=== PATIENT | male | born 1935 | race Native Hawaiian/Other Pacific Islander ===

== ENCOUNTER 2019-10-05 15:15 | Inpatient (IN) | payer OTHER ==
[~2019-10-05] VITALS: Ht 152.4 cm; Wt 82.1 kg
[2019-10-05 16:24] LABS: PLATELET COUNT 393 K/uL (142-355)
[2019-10-05 16:39] LABS: POTASSIUM 4.1 mmol/L (3.6-5.2)
[2019-10-05 16:40] VITALS: BP 119/57; TEMP 98.1; BMI 28.2
[2019-10-05 20:49] VITALS: BP 118/52; TEMP 98.1
--- NOTE | 2019-10-06 07:18 | NUR ---
Patient was admitted to the [facility] and has a PMH of rectal cancer, HTN, Hypothyroidism,UTI, urinary retention and had a colon resection, colostomy, , rectal cancer,colon resection, generalized muscle weakness, labs reveal- elevated labs are WBC, platelet count, BUN, gl113, and depressed labs are RBC, Hgb, Hct, Na, Ca, t. pro and lab levels. Patient is 6'1" at 216.4 lbs. and IBW = 184 +/-10% (166-202 lbs.), kcal for IBW X 25 = 2100, X 30 = 2500, X 35 = 2900, X 40 = 3345 KCAL Q DALY, PROTEIN X .8 TO 1.5 = 67 TO 125 AND WIHT LOW TOTAL PROTEIN AND ALB NEEDS HBV PROTEIN AND INCREASE PROTEIN AND MINITOR BUN LEVEL, BUN PRESENTLY ELEVATED. BMI - 28.5 OVERWEIGHT, AND IS 118% IBW, AND FLUIDS FOR WEIGHT AT 216.4 = 9945-1237 ML PER DAY. Recommend: 1- Add protein 30 ml qid 2- Monitor Labs 3-INCREASE PROTEIN WITH MEALS- EGGS FOR BREAKFAST AND MEATS W/ LUNCH AND SUPPER MEALS.
--- NOTE | 2019-10-06 14:57 | NUR ---
consult for urologist on admission orders. Family does not have a preference on who to use. I consulted with DR. Rodrigues in [place]. All information that was requested was sent via fax to MD office. awaiting return call for appt. date and time. Family will transport patient,
--- NOTE | 2019-10-06 20:00 | NUR ---
Dr. Trinidad Kingston here assessing the edema to Patient's penis. Dr. Kingston retracted the foreskin, area cleaned with hygiene wipes and foreskin returned to original area. Patient tolerated well but v/o penis was tender to touch. No new orders received from Dr. Geoff Kingston at this time.
[2019-10-06 20:05] VITALS: BP 99/45; TEMP 98.5
--- NOTE | 2019-10-07 19:40 | NUR ---
0730 INTO MAKE MORNING ROUNDS PT REQUESTED TO BE RAISED UP IN BED. ABDIRAHMAN PCT AND MYSELF ASSISTED PT BY PULLING HIM UP WITH DRAW SHEET AND PLACING PILLOWS BEHIND HIM. 1415 PT CALLED TO COME ASSIST WITH GETTING PT BACK TO BED. PT ABLE TO PUSH SELF UP OUT OF WHEELCHAIR WITH LIMITED ASSISTANCE AND AMBULATE TO BEDSIDE WITH WALKER. PT SAT ON BEDSIDE AND LAID BACK WITH SOME HELP GETTING BLE ONTO BED.
[2019-10-07 20:00] VITALS: BP 111/40; TEMP 99.6
[2019-10-08 08:04] VITALS: BP 107/53; TEMP 98.5
--- NOTE | 2019-10-08 17:41 | NUR ---
1430 IN TO ROUND ON PT. PT DRESSING TO MID LOWER ABD CHANGED, SURGICAL INCISION CLEANSED PER ORDERS, ABD PAD APPLIED. MILD REDNESS NOTED TO INCISION NO DRAINAGE OR ODOR NOTED. PT BOTTOM REASSESSED AT FAMILY'S REQUEST. 0.5CM AREA NOTED TO PT SCROTUM BARRIER CREAM APPLIED PER DR. Chris ONEIL. NO BLEEDING OR DRAINAGE NOTED. PT WAFER AND COLOSTOMY BAG CHANGED AT THIS TIME WELL. STOMA CLEANSED THOROUGHLY, CLEANED AROUND IT WITH PRECLEANSING WIPE, SKIN PREP APPLIED, NEW WAFER MEASURED AND REAPPLIED. PT TOLERATED WELL WITHOUT COMPLAINTS. PT NOTED TO DOZE OFF DURING CHANGING OF WOUND DRESSING AND CHANGING OF COLOSTOMY BAG.
[2019-10-08 20:00] VITALS: BP 103/43; TEMP 98.2
--- NOTE | 2019-10-09 07:45 | NUR ---
ON ROUNDING PT WAS BRINGING PATIENT BACK TO HIS ROOM FROM GETTING THERAPY THIS MORNING VIA WHEELCHAIR. PT NOTIFIED THIS NURSE THAT WHILE ASSISTING PATIENT OUT OF BED THIS MORNING IT WAS NOTED ON THE GREEN PAD SOME BLOOD AND ON FURTHER ASSESSMENT THE SKIN ON HIS UPPER BUTTOCKS WAS SLOUGHING AND STICKING TO HIS PANTS. ON FURTHER ASSESSMENT IS WAS NOTED SKIN SLOUGHING AND SOME BLEEDING NOTED ON UPPER BUTTCKS. NOTIFIED AND NEW ORDERS WERE GIVEN FOR SILVADENE AND CONSULT WITH WOUND NURSE. ALSO NOTED STATED HIS CURRENT COLOSTOMY BAG HAD A HOLE IN WHAT SHE BELIEVES WAS CAUSED BY THE ABDOMINAL BINDER THAT WAS LEFT IN PLACE LAST NIGHT. EXPLAINED TO THAT WE WOULD CHANGE HIS BACK AND APPLY CREAM ORDERED BY PHYSICIAN.
--- NOTE | 2019-10-09 08:00 | NUR ---
PATIENT ASSISTED UP FROM BEDSIDE CHAIR WITH MODERATE ASSISTANCE AND USING WALKER WAS ABLE TO AMBULATE TAKING A FEW SHORTS STEPS FOWARD AND THEN MOVING TOWARDS BED. PATIENT STILL REQUIRES 2 PERSON ASSIST TO REPOSITION HIM UP IN BED. WHILE IN BED PATIENT PLACED IN SUPINE POSITION AND WITH HIS ASSISTANCE SHE HELPED HIM ROLL OVER ON TO HIS RIGHT SIDE. AREA TO HIS UPPER BUTTOCKS CLEANED WITH NORMAL SALINE AND PADDED DRY. SILVADENE APPLIED ON TELFA PAD AND COVERED WITH ABDOMINAL PAD AND THEN SECURED WITH TAPE. AREA TO THE SCROTUM CLEANED AND CALAMIZE CREAM APPLIED. CURRENT ABDOMINAL DRESSING REMOVED AND NOTED ON LOWER ABDOMEN A SURGICAL WOUND WITH 20 CURTIS INTACT. NO DRAINAGE NOTED THERE WAS HOWEVER SOME REDNESS SURRONDING INCISION. AREA CLEANED WITH NS AND THEN CHLORXEDINE APPLIED AND CLEANED WITH STERILE GAUZE FOLLWED BY FLUSHING WITH NS AND PADDED DRY WITH STERILE GAUZE WELL, ABDOMINAL PAD PLACED ON TOP AND SECURED WITH TAPE.
[2019-10-09 08:06] VITALS: BP 96/40; TEMP 98.2
--- NOTE | 2019-10-09 18:48 | NUR ---
PATIENT NOTED RESTING QUIETLY IN BED EATING CRACKERS, WHEN CALLING HIS NAME PATIENT IS PLEASENT. NO DISTRESS NOTED AT THIS TIME.
[2019-10-09 20:00] VITALS: BP 116/57; TEMP 97.7
--- NOTE | 2019-10-10 01:27 | NUR ---
10/10/2019 0130 RESTING EYES CLOSED RESP EVEN NONLABORED NAD NOTED.CALL LIGHT WITHIN REACH.
--- NOTE | 2019-10-10 06:28 | NUR ---
10/10/2019 0615 EMPTIED SMALL AMOUNT OF GREEN STOOL FROM OSTOMY BAG.NAD NOTED.CC
[2019-10-10 08:26] VITALS: BP 116/56; TEMP 98.5
--- NOTE | 2019-10-10 10:17 | NUR ---
Mr. Atwood has a appt. with Dr. hager in [place] on on thursday10/11/2019 at 10am he also has an appt. with Dr. Rodrigues (urologist) in [place] on 10/13/2019 at 0930. Family with transport patient to and from his appts. family and nursing staff are aware of appts.
[2019-10-10 20:00] VITALS: BP 110/52; TEMP 98.5
--- NOTE | 2019-10-11 04:45 | NUR ---
10/11/2019 0010: PT HAS 2 DECUBITUS. RIGHT BUTTOCKS 30 CM LONG, 30CM WIDE. LEFT BUTTOCKS 45CM LONG AND 40CM WIDE. WOUNDS ARE STAGE 2. WOUNDS CLEANED WITH NS. SILVADENE APPLIED TO BOTH SIDES, COVERED WITH 4X4'S AND LARGE TEGADERM TO COVER. PT TOLERATED WELL.
[2019-10-11 08:00] VITALS: BP 116/57; TEMP 98.3
--- NOTE | 2019-10-11 08:04 | NUR ---
0745 THERAPY IN WITH PT ATTEMPTING TO HELP PT DRESS FOR DR'S APPT. PT STATED HE DID NOT WANT TO GET DRESSED AT THIS TIME. PT STATED HE WOULD GET DRESSED LATER
--- NOTE | 2019-10-11 10:25 | NUR ---
1030 SPOKE TO MIRANDA IN THERAPY CONCERNING EPISODE THAT HAPPENED IN [facility] ON 10-10-19. PER THERPAY PT NOTED TO HAVE SMALL LIQUID STOOL FROM RECTUM WHILE IN THERMOY. PT STILL HAS COLOSTOMY WITH LIQUID BROWN/YELLOW STOOL NOTED IN COLOSTOMY BAG.
--- NOTE | 2019-10-11 11:41 | NUR ---
1135 PT BACK FROM OUT-PT APPT. WITH PT. PT IN WC. ASSISTED PT BACK TO ROOM AND OUT OF WC AND INTO CHAIR. PER REMOVED CURTIS FROM INCISION TO ABD AND DRY ABD PAD INTACT. NO ACTIVE BLEEDING NOTED. COLOSTOMY BAG AND HORAN CATH BAG DRY AND INTACT WITH YELLOW URINE NOTED. STATED PER MD ABD BINDER DID NOT NEED TO BE WORN ANYMORE SINCE CURTIS HAD BEEN REMOVED. NO ORDERS OR NOTES REC'D FROM MD AT THIS TIME. REQUESTED PT'S BOTTOM BE "CLEANED UP" . STATED PT HAD SOME CLEAR DRAINAGE FROM RECTUM WHILE AT MS'S OFFICE. PER STATED THAT THIS WAS NORMAL AND OK. CHECKED AND PT CLEAN AT THIS TIME. DRESSING TO BUTTOCK AREA REMOVED AND AREA CLEANED AND SILVADENE CREAM APPLIED. AND ABD PAD APPLIED. WILL CONT TO RANDYTR.
[2019-10-11 20:10] VITALS: BP 131/63; TEMP 97.7
[2019-10-12 08:00] VITALS: BP 122/60; TEMP 98
[2019-10-12 20:00] VITALS: BP 109/51; TEMP 98.9
[2019-10-13 08:00] VITALS: BP 104/53; TEMP 98.2
[2019-10-13 20:00] VITALS: BP 113/50; TEMP 99.5
--- NOTE | 2019-10-14 00:30 | NUR ---
PT COLOSTOMY BAG EMPTIED AT THIS TIME.
--- NOTE | 2019-10-14 04:30 | NUR ---
IV INFILTRATED AT THIS TIME. UNABLE TO OBTAIN NEW SITE X2 ATTEMPTS, CALLED ER NURSE TO ASSESS FOR IV SITE AND WAS UNABLE TO FIND SUITABLE SITE.
--- NOTE | 2019-10-14 06:11 | NUR ---
PT COLOSTOMY BAG EMPTIED AT THIS TIME.
[2019-10-14 08:00] VITALS: BP 125/64; TEMP 97.9
--- NOTE | 2019-10-14 14:33 | NUR ---
DRESSING REMOVED FROM ABD SITE CLEANED WITH ALCOHOL AND LEFT OPEN TO AIR. DRESSING CHANGED TO COCCYX NO SLOUGHING NOTED AT THIS TIME SITE IS PINK AND FREE FROM INFECTION CLEANED WITH NS AND SILVADINE APPLIED WITH ABD
[2019-10-14 20:10] VITALS: BP 106/43; TEMP 98.1
[2019-10-15 07:00] VITALS: BP 126/65; TEMP 97.6
--- NOTE | 2019-10-15 16:28 | NUR ---
DRESSING CHANGED TO COCCYX AND ABD INCISION CLEANED
[2019-10-15 19:55] VITALS: BP 111/55; TEMP 98.7
--- NOTE | 2019-10-16 08:00 | NUR ---
PT RESTING N LF WITH EYES CLOSED. HORAN TO BSD WITH CL YELLOW URINE.
[2019-10-16 08:30] VITALS: BP 117/63; TEMP 98.2
--- NOTE | 2019-10-16 11:00 | NUR ---
WOUND TO COCCYX CLEANED WITH NS,APPEARS TO BE A BURST BLISTER,PALE PINK IN COLOR WITH NO DRAINAGE ON NR SIDE & SM AMT PINK ON R SIDE. SIZE 4-5 CM BOTH SIDES OF COCCYX & L SIDE 2-3 CM AREA IN CENTER PINKER. SILVADENE APPLIED COVERED WITH ABD & PAPER TAPE. COLOSTOMY EMPTIED OF 75 ML SOFT BROWN BM.
--- NOTE | 2019-10-16 14:40 | NUR ---
PT C/O 'I FEEL LIKE I'VE GOT TO PEE ALL THE TIME, I FEEL LIKE I'M ABOUT TO BUST'. REPORTED TO DR GARSIA. AUNG TO BSD WITH CLEAR YELLOW URINE WITH SEDIMENT IN TUBING.
--- NOTE | 2019-10-16 15:00 | NUR ---
PT WITH NOTED SM AMT EDEMA TO FORESKIN OF PENIS NEAT GLANS TIP. CLEANED WITH NS, TESTICLES ELEVATED ON WASHCLOTH FOR COMFORT. UA OBTAINED. HORAN IRRIGATED WITH 20 ML STERILE NS. URINE IN SPECIMEN CUP WITH SM AMT CLOUDY.HORAN BAG REPOSITONED FOR COMFORT.NOTED 2 TINY <.5CM ? ABRAIDED AREAS TO FORESKIN ON PENIS.
--- NOTE | 2019-10-16 17:25 | NUR ---
LABS CALLED TO DR GOKUL GARSIA. NEW ORDERS.
[2019-10-16 20:26] VITALS: BP 116/59; TEMP 98.1
[2019-10-17 08:21] VITALS: BP 127/55; TEMP 97.6
--- NOTE | 2019-10-17 08:30 | NUR ---
PT REQUESTED COLOSTOMY TO BE EMPTIED. COLOSTOMY BAG EMPTIED. PT TOLERATED WELL.
--- NOTE | 2019-10-17 10:20 | NUR ---
PT REQUESTED COLOSTOMY BAG TO BE EMPTIED. BAG EMPTIED PER REQUEST. SMALL AMOUNT OF STOOL NOTED. PT TOLERATED WELL.
--- NOTE | 2019-10-17 14:15 | NUR ---
CALL REC'D FROM PHYSICAL THERAPY. PHYSICAL THERAPY REPORTS PT DESATTING TO [address] COPELAND NOTIFIED. ORDERS REC'D TO START O2 2L/MIN TITRATE TO KEEP SATS >92%. PHYSICAL THERAPY NOTIFIED.
--- NOTE | 2019-10-17 14:47 | NUR ---
PT COLOSTOMY BAG CHANGED. SMALL AMOUNT STOOL NOTED. DRESSING TO SACARAL AREA CHANGED. SILVADENE APPLIED AND COVERED WITH ABD PAD. PT TOLERATED WELL
[2019-10-17 20:00] VITALS: BP 112/56; TEMP 98.2
--- NOTE | 2019-10-17 22:14 | NUR ---
300CC LIQUID STOOL EMPTIED FROM COLOSTOMY AT THIS TIME.
[2019-10-18 08:00] VITALS: BP 139/61; TEMP 97.7
[2019-10-18 20:00] VITALS: BP 139/58; TEMP 97.9
--- NOTE | 2019-10-19 07:36 | NUR ---
10/19/2019 0600 PT OSTOMY WAFER AND BAG CHANGED WITH MODERATE AMOUNT STOOL BROWN GREEN IN COLOR,PT BATHED OFF AND BEDLINEN CHANGED.ICE WATER PROVIDED AT BEDSIDE.HORAN CATHETER DRAINING ORANGE COLORED URINE FROM PYRDIUM MEDICATION.CATH SECURE APPLIED NOTED SMALL SORE AREA TO PENIS NOTED REPORTED TO DAY SHIFT NURSE.ALSO DSY TO COCCYX AREA CLEANED APPLIED SILVADEEN AND TAPE.CC
[2019-10-19 08:00] VITALS: BP 119/58; TEMP 97.6
--- NOTE | 2019-10-19 11:01 | NUR ---
URINE C & S FINAL CAME BACK AND BACTRIM DS THAT PT WAS ON IS NOT SENITIVE. DR ELIU ONEIL NOTIFIED AND NEW ORDER RECEIVED FOR MACOBID 100 MG, BID X 14 DAYS RECEIVED. BACTRIM DS D/C'D.
[2019-10-19 20:10] VITALS: BP 104/47; TEMP 98.3
[2019-10-20 08:00] VITALS: BP 112/68; TEMP 97.6
[2019-10-20 20:00] VITALS: BP 110/53; TEMP 98.5
[2019-10-21 08:00] VITALS: BP 110/50; TEMP 97.9
--- NOTE | 2019-10-21 09:05 | NUR ---
MDS and UR department spoke with Alan Benson regarding usp placement for her , she is in full agreement with placement. She is unable to provide the 24-hour care that her requires at this time. She was going to the [facility] to place him on the waiting list. UR dept. will reach out to surrounding facilities for availability. Hospitalist is aware.
[2019-10-21 20:00] VITALS: BP 118/53; TEMP 98.1
--- NOTE | 2019-10-21 21:30 | NUR ---
PT COLOSTOMY BAG EMPTIED AT THIS TIME.
[2019-10-22 05:09] LABS: PLATELET COUNT 246 K/uL (142-355)
[2019-10-22 05:27] LABS: POTASSIUM 3.8 mmol/L (3.6-5.2)
--- NOTE | 2019-10-22 05:49 | NUR ---
PT COLOSTOMY BAG EMPTIED AT THIS TIME.
[2019-10-22 08:00] VITALS: BP 124/62; TEMP 97.9
--- NOTE | 2019-10-22 14:42 | NUR ---
pt colostomy bag emptied. changed dressing x2 due to green liquid stool draining out on dressing. had to change pt clothing 4x due to the drainage constantly draining out.
[2019-10-22 20:00] VITALS: BP 130/60; TEMP 98.5
--- NOTE | 2019-10-23 01:30 | NUR ---
PT'S COLOSTOMY BAG EMPTIED AT THIS TIME.
--- NOTE | 2019-10-23 10:00 | NUR ---
COLOSTOMY BAG BURPED AT THIS TIME.
[2019-10-23 11:28] VITALS: BP 151/66; TEMP 99.4
--- NOTE | 2019-10-23 17:30 | NUR ---
REILLY GONZALEZ LPN CALLED THIS NURSE TO COME AND EVALUTE PATIENT REGARDING PATIENT COMPLAINING OF BEING WET ON HIS BOTTOM AND MIDBACK. ON ASSESSMENT IT WAS NOTED THAT HIS CLOTHES FROM HIS BOTTOM AND MIDBACK WAS DRENCHED IN URINE. PATIENT CURRENTLY HAS A 18 HUNGARIAN CUDAE CATHETER CONNECTED TO BEDSIDE DRAINAGE NOTED IN TUBING IS MODERATE AMOUNT OF YELLOW SEDIMENT. ASSESSING THE HEAD OF THE PENIS AND AROUND CATHETER SITE NO DRAINAGE OR LEAKING WAS NOTED AT THIS TIME I WENT DOWN TO NURSES STATION AND CALLED CURRENT HOSPITALIST ON SITE TO SEE IF WE COULD IRRIGATE BLADDER AND SEE IT THAT WOULD CLEAR UP SOME OF THE HORAN CATHETER AND POSSIBLE DRAINAGE. ORDER PLACED AND 250 ML OF STERILE WATER FOR IRRIGATION PULLED ALONG WITH A 60 ML SYRINGE. WHILE IN PATIENTS ROOM PATIENTS CATHETER BAG DISCONNECTED AND CATHETER IRRIGATED WITH 90 ML OF STERILE WATER, WHILE FLUSHING MODERATE AMOUNT OF SEDIMENT FLUSHED. ON RETURN 80 ML YELLOW URINE WITH SEDIMENT WAS NOTED. CATHETER SECURED AND PATIENT DRESSED AT THIS TIME.
--- NOTE | 2019-10-23 18:41 | NUR ---
PT TOLERATED MEDICATION WHOLE WITH NO COMPLIANTS. GAVE A BED BATH AND CHANGED LINEN. PT STILL HAVE GREEN MODERATE DISCHARGE COMING FROM HIS ANUS AREA. ORDERED C-DIFF LAB TEST. AWAITING RESULTS. APPLIED SILVADENE CREAM TO SACCRUM AREA AND SCROTUM. BED IN LOWEST POSITION. HOB ELEVATED. CALL LIGHT IN REACH.
[2019-10-23 20:00] VITALS: BP 128/65; TEMP 98.9
--- NOTE | 2019-10-24 07:45 | NUR ---
PT'S CONCERNED WITH PT'S DECREASED OUTPUT IN HORAN BAG & ADULT BRIEF BEING WET AT INTERVALS. HORAN IRRIGATED WITH 15ML STERILE NS.WITH NOTED MOD AMT SEDIMENT.MED YELLOW URINE RETURNED TO BAG AFTER. PERICARE, WOUND CARE TO L BUTTOCK 2X/.5 CM RED OPEN AREA CLEANED, SILVADENE APPLIED,COVERED WITH FOLDED ABD. REQUESTED APPOINTMENT WITH DR MONTENEGRO UROLOGIST.
[2019-10-24 08:08] VITALS: BP 115/54; TEMP 98.1
--- NOTE | 2019-10-24 08:16 | NUR ---
NOTIFIED UR OF PT'S REQUEST.
--- NOTE | 2019-10-24 08:30 | NUR ---
REPORTED ALL OF ABOVE TO DR ELIU ONEIL./ WILL TALK WITH PT & .
--- NOTE | 2019-10-24 09:45 | NUR ---
QUESTIONABLE DEPRESION REPORTED TO DR ELIU ONEIL.
--- NOTE | 2019-10-24 10:23 | NUR ---
APPOINTMENT WITH DR ROCA FOR 0926 TOMORROW . PT'S NOTIFIED, UR NOTIFIED, DR ONEIL NOTIFIED. INFO REQUESTED FAXED TO DR FLETCHER.
--- NOTE | 2019-10-24 12:30 | NUR ---
PT WITH NOTED GOOD URINE OUTPUT IN HORAN BAG & NO MORE WET BRIEF.
--- NOTE | 2019-10-24 16:43 | NUR ---
BIM[facility] interview completed.
--- NOTE | 2019-10-24 17:40 | NUR ---
PT CONTINUES TO HAVE GOOD URINE OUTPUT IN CATHETER BAG.BRIEF DRY. PT FEEDING SELF DINNER.
[2019-10-24 20:23] VITALS: BP 130/58; TEMP 98.7
--- NOTE | 2019-10-25 05:40 | NUR ---
PT REC'D BATH AT THIS TIME WITH NURSE AND TECH ASSISTANCE. COLOSTOMY EMPTIED AT THIS TIME. PT TOLERATED WELL.
[2019-10-25 08:00] VITALS: BP 142/58; TEMP 97.8
[2019-10-25 20:00] VITALS: BP 141/64; TEMP 98.3
[2019-10-26 08:00] VITALS: BP 140/68; TEMP 98.4
--- NOTE | 2019-10-26 19:30 | NUR ---
COLOSTOMY BAG EMPTIED AT THIS TIME, FAMILY AT BEDSIDE, FOUL ODOR NOTED.
[2019-10-26 20:00] VITALS: BP 132/51; TEMP 97.7
--- NOTE | 2019-10-27 02:43 | NUR ---
COLOSTOMY BAG EMPTIED AT THIS TIME, FOUL ODOR NOTED.
--- NOTE | 2019-10-27 03:00 | NUR ---
BRIEF CHANGED AT THIS TIME DUE TO SMALL AMOUNT OF YELLOWISH MUCOUS FOUL ODUR DRAINAGE LEAKAGE FROM RECTUM.
[2019-10-27 08:00] VITALS: BP 142/63; TEMP 97.3
--- NOTE | 2019-10-27 08:30 | NUR ---
NOTIFIED DR. GARSIA OF PT'S C/O'S OF NAUSEA AND VOMITING AND EPISODES TODAY AND RECEIVED SYED FOR ZOFRAN 4MG PO EVERY 4 HOURS PRN. VIRGIL NOTED AND SCANNED TO [facility].
--- NOTE | 2019-10-27 15:40 | NUR ---
IN TO MAKE ROUNDS ON PT. PT LAYING IN BED ON BACK IN LOW FOWELERS. RISE AND FALL OF CHEST NOTED. NAD NOTED. PT RESTING QUIETLY WITH EYES CLOSED.
--- NOTE | 2019-10-27 19:38 | NUR ---
200ML LIQUID STOOL EMPTIED FROM PT'S COLOSTOMY BAG. PT TOLERATED WELL WITHOUT DIFFICULTY
[2019-10-27 20:00] VITALS: BP 132/54; TEMP 98.6
[2019-10-28 08:00] VITALS: BP 116/68; TEMP 98.1
--- NOTE | 2019-10-28 10:00 | NUR ---
PT'S COLONOSTOMY BAG WAS CHANGED. PT TOLERATED WITH NO DISTRESS NOTED.
[2019-10-28 20:00] VITALS: BP 128/57; TEMP 99
[2019-10-29 08:00] VITALS: BP 121/58; TEMP 97.9
--- NOTE | 2019-10-29 10:14 | NUR ---
OSTOMY BAG EMPTIED AT THIS TIME. MEDIUM SIZED SEMIFORMED BROWN STOOL NOTED. PT TOLERATED WELL. AT BEDSIDE. EDUCATION GIVEN REGARDING OSTOMY CARE. PT AND VERBALIZED UNDERSTANDING. SILVADINE CREAM APPLIED TO BUTTOCKS AT THIS TIME. SMALL AREA TO LEFT BUTT CHEEK NOTED. STATES " THAT LOOKS SO GOOD COMPARED TO BEFORE." NAD NOTED. WILL CONTINUE TO MONITOR.
--- NOTE | 2019-10-29 14:00 | NUR ---
NURSE ASKS PATIENT IF THERE IS ANYTHING SHE CAN GET HIM TO EAT BECAUSE OF A NOTICE IN DECREASE APPETITE. PT STATES " I HAVE HAD NO APPETITE SINCE I HAVE BEEN IN THE HOSPITAL." NURSE ASKED PATIENT IF HE FELT DIFFERENT OR BAD TODAY PT STATES, " NO I DO NOT FEEL BAD TODAY AT ALL." NAD NOTED. AT BEDSIDE. WILL CONTINUE TO MONITOR.
[2019-10-29 20:00] VITALS: BP 113/46; TEMP 97.8
--- NOTE | 2019-10-30 10:00 | NUR ---
PT LYING IN BED WITH EYES OPENED AND TALKING WITH AND SON. TOOK MEDS WHOLE WITH NO DISTRESS NOTED. PT USES THE URINAL FOR URINATING AND HAS A COLONOSTOMY BAG FOR STOOL. NO ACUTE DISTRESS NOTED OR C/O OF PAIN OR DISCOMFORT VOICED. CALL LIGHT IS WITHIN REACH. WILL CONTINUE TO MONITOR.
--- NOTE | 2019-10-30 15:00 | NUR ---
PATIENT WAS TRANSFERRED VIA W/C TO WORK WITH PT 1615- PT TRANSFERRED VIA W/C BACK TO ROOM 1119 FROM PT DEPT. NAD NOTED. CALL LIGHT WITHTIN REACH.
--- NOTE | 2019-10-30 19:10 | NUR ---
PT HAD BED BATH AND CLOTHES WERE CHANGED. PT IS ABLE TO STAND UP BY HIMSELF AND HOLD ONTO COUNTER WHILE SOMEONE WASHES HIS LOWER BODY. PATIENT IS ABLE TO WASH HIS UPPER BODY BY HIMSELF. COLONOSTOMY WAFFER AND BAG WAS CHANGED TODAY. NO ACUTE DISTRESS NOTED. CALL LIGHT WITHIN REACH.
[2019-10-30 20:00] VITALS: BP 113/52; TEMP 98.8
[2019-10-31 04:44] VITALS: BP 183/106; TEMP 99; Ht 152.4 cm; Wt 82.1 kg
[2019-10-31 08:00] VITALS: BP 142/62; TEMP 97.7
--- NOTE | 2019-10-31 14:44 | NUR ---
PATIENT DID NOT EAT BREAKFAST AND ONLY ATE 10% PF HIS LUNCH. PT THEN WENT TO PHYSICAL THERAPY AND CAME BACK AND IS NOW EATING BANANAS AND MASH POTATOES.
[2019-10-31 20:00] VITALS: BP 139/67; TEMP 97.9
[2019-11-01 08:00] VITALS: BP 122/58; TEMP 98.4
--- NOTE | 2019-11-01 11:43 | NUR ---
PATIENT DISCHARGED IN W/C WITH AND ESCORT TO POV AT NOTED TIME. ALL MEDICATION EDUCATION AND COLOSTOMY CARE EDUCATION PROVIDED PRIOR TO DISCHARGE. PATIENT AND CAREGIVER INSTRUCTED TO COLLABORATE WITH HOME HEALTH. CAREGIVER, , STATED SHE ALREADY CALLED [facility] AND THEY WILLBE ASSISTING PATIENT AT HOME BEGINNING IN A FEW DAYS. INSTRUCTED TO F/U WITH PCP IN 2 WEEKS POST DISCHARGE, VOICED UNDERSTANDING.
== END 2019-11-01 11:12 | disposition home or self-care (01) | DRG 556 ==
LOC: MED/SURG 15:15
PROVIDERS: ADMIT Family Medicine
DX: M62.81 Muscle weakness (generalized) (principal); N39.0 Urinary tract infection, site not specified; C19 Malignant neoplasm of rectosigmoid junction; R62.7 Adult failure to thrive; R26.89 Other abnormalities of gait and mobility; Z91.81 History of falling; I10 Essential (primary) hypertension; E03.8 Other specified hypothyroidism; R33.8 Other retention of urine; Z93.3 Colostomy status; K21.9 Gastro-esophageal reflux disease without esophagitis; N40.0 Benign prostatic hyperplasia without lower urinary tract symptoms; R09.02 Hypoxemia; Z90.49 Acquired absence of other specified parts of digestive tract
CPT/HCPCS: 36415; 80053; 81000; 83630; 83735; 85027; 87077; 87086; 87088; 87185; 87186; 87324; 87449; J2060

== ENCOUNTER 2020-12-06 12:04 | Outpatient (CLI) | payer OTHER ==
[2020-12-06 12:32] LABS: PLATELET COUNT 226 K/uL (142-355)
[2020-12-06 12:44] LABS: POTASSIUM 4.1 mmol/L (3.6-5.2)
== END 2020-12-06 21:45 | disposition home or self-care (01) ==
LOC: LABW 12:04
PROVIDERS: ATTEND Nurse Practitioner Family
DX: R05 Cough (principal); R10.9 Unspecified abdominal pain
CPT/HCPCS: 36415; 80053; 81000; 82150; 83690; 85027; Q9963

== ENCOUNTER 2021-02-11 12:46 | Outpatient (CLI) | payer OTHER ==
[2021-02-11 13:33] LABS: PLATELET COUNT 234 K/uL (142-355)
[2021-02-11 13:42] LABS: POTASSIUM 3.9 mmol/L (3.6-5.2)
== END 2021-02-11 19:55 | disposition home or self-care (01) ==
LOC: LABW 12:46
PROVIDERS: ATTEND Surgery
DX: K59.09 Other constipation (principal)
CPT/HCPCS: 36415; 80053; 85027

== ENCOUNTER 2021-09-13 05:40 | Inpatient (IN) | payer OTHER ==
[~2021-09-13] VITALS: Ht 188 cm; Wt 104.1 kg
[2021-09-13] VITALS (12 sets, daily range): BP systolic 83–140; BP diastolic 41–68; TEMP 98.2–99.3; Ht 188 cm; Wt 104.1 kg
[2021-09-13] MEDS ORDERED: K-TAB20 MEQ PO (06:09)
[2021-09-13] MEDS ORDERED: LEVO0.1224 PO (06:10)
[2021-09-13] MEDS ORDERED: ALLO300T23 PO (06:11)
[2021-09-13] MEDS ORDERED: NIFE30TA PO (06:11)
[2021-09-13] MEDS ORDERED: D350 MCG PO (06:12)
[2021-09-13] MEDS ORDERED: FURO20TA67 PO (06:12)
[2021-09-13 06:21] LABS: PLATELET COUNT 159 K/uL (142-355)
[2021-09-13 06:28] LABS: POTASSIUM 3.6 mmol/L (3.6-5.2)
[2021-09-13 07:01] LABS: PARTIAL THROMBOPLASTIN TIME 28.8 SECONDS (24.5-33.6)
[2021-09-13] MEDS ORDERED: VITAMIN B-121000 MC2 PO (17:11)
[2021-09-13] MEDS ORDERED: MULTI VITAMIN1 TAB PO (17:15)
--- NOTE | 2021-09-13 17:32 | NUR ---
09/13/21 1050 TO ROOM 1116 DX UROSEPIS UTI,NEW ONSET AFIB,COVID +,CHESTPAIN R/O MD.ALERT ORIENTED.TELE PLACED ON PATIENT.HORAN CATHETER TO BEDSIDE SHARON URINE.CALL LIGHT WITHIN REACH.CC
--- NOTE | 2021-09-13 21:00 | NUR ---
PT IS UP ON THE BEDSIDE COMMODE AT THIS TIME, NO DIFFICULTY NOTED DURING TRANSFERRING FROM THE BED TO BSC. PATIENT HAS DENIED PAIN AT THIS TIME, TOLERATED PO MEDICATION WELL WITHOUT DIFFICULTY SWALLOWING. PLEASANT TONE NOTED WILL CONTINUE WITH CURRENT PLAN OF CARE.
--- NOTE | 2021-09-13 23:00 | NUR ---
PT HAS BEEN ASSISTED TO BSC WITH NO DIFFICULTY NOTED, PLEASANT TONE HAS REMAINED SINCE LAST INTERACTION. DENIES PAIN, UNSTEADY GAIT NOTED DURING TRANSFER WITH SOME DIFFICULTY HEARING ALSO NOTED. NO DISTRESS PRESENT WILL CONTINUE WITH CURRENT PLAN OF CARE.
[2021-09-14] VITALS: BP 122/58; TEMP 98.6
--- NOTE | 2021-09-14 01:00 | NUR ---
PT IS RESTING IN BED OXYGEN LEVELS HAS DECREASED WITH ORDER PICKER NOTIFIED, OXYGEN THERAPY INITIATED WITH ORDERS COMPLETED AT 3L/MIN VIA NC. OF NOW VITALS HAS WENT BACK TO BASELINE WITH NO FURTHER INCIDENTS NOTED. WILL CONTINUE WITH CURRENT PLAN OF CARE.
--- NOTE | 2021-09-14 03:00 | NUR ---
PT HAS CONTINUED TO REST WELL WITH NO COMPLAINTS VOICED NASAL CANNULA INTACT WITH OXYGEN DELIVERY AT 3L/MIN. VITALS ARE WNL WITH NO DISTRESS NOTED, ABLE TO VOICE ALL NEEDS WITH NONE NOTED WILL CONTINUE WITH CURRENT PLAN OF CARE.
[2021-09-14 04:07] VITALS: BP 118/66; TEMP 98.2
[2021-09-14 04:50] LABS: PLATELET COUNT 143 K/uL (142-355)
[2021-09-14 05:05] LABS: POTASSIUM 3.8 mmol/L (3.6-5.2)
--- NOTE | 2021-09-14 06:14 | NUR ---
PT RESTING IN BED WITH EYES CLOSED NO DISTRESS NOTED WILL CONTINUE TO WITH CURRENT PLAN OF CARE.
[2021-09-14 08:00] VITALS: BP 109/68; TEMP 97.5
--- NOTE | 2021-09-14 11:00 | NUR ---
ASSISTED PATIENT TO BSC FOR BOWEL MOVEMENT, LINENS AND CHUX CHANGED. PATIENT'S GAIT IS SLOW AND STEADY WITH ASSISTANCE X1 STAFF MEMBER. NAD NOTED WITH PATIENT AT THIS TIME. PATIENT DENIES ANY PAIN, NEEDS OR C/O.
--- NOTE | 2021-09-14 11:40 | NUR ---
PROVIDED PATIENT'S AN UPDATE ON PATIENT'S CONDITION, V/O UNDERSTANDING AND DENIES ANY FURTHER QUESTIONS OR C/O.
[2021-09-14 12:00] VITALS: BP 130/49; TEMP 98.2
--- NOTE | 2021-09-14 14:58 | NUR ---
REPORT GIVEN BY ARTHUR MORGAN.
[2021-09-14 16:00] VITALS: BP 129/68; TEMP 98.1
[2021-09-14 19:48] VITALS: BP 136/60; TEMP 98.4
[2021-09-15 00:07] VITALS: BP 118/59; TEMP 98.4
[2021-09-15 03:47] VITALS: BP 112/58; TEMP 97.8
[2021-09-15 05:23] LABS: PLATELET COUNT 154 K/uL (142-355)
[2021-09-15 05:29] LABS: POTASSIUM 3.7 mmol/L (3.6-5.2)
[2021-09-15 08:00] VITALS: BP 119/62; TEMP 97.5
--- NOTE | 2021-09-15 11:00 | NUR ---
PROVIDED PATIENT WITH ITEMS FAMILY DELIVERED TO HOSPITAL. ASSISTED PATIENT TO BSC, LINENS CHANGED, PATIENT GIVEN A BATH, AND LEADS CHANGED. ASSISTED PATIENT WITH TRANSFERRING BACK TO BED. PER PATIENT'S REQUEST, SOUP REMOVED FROM BOWL AND BOWL CLEANED BY CHEESE BLENDER. CHEESE BLENDER PROVIDED PATIENT WITH A CHOCOLATE DRINK, OTHER DRINKS FROM FAMILY REMAIN ON ICE IN PATIENT'S ROOM ON BEDSIDE TABLE WITHIN PATIENT'S REACH, ALONG WITH CALL LIGHT. PATIENT CONTINUES TO RECEIVE OXYGEN VIA NC @ 3LPM, SPO2 100%
[2021-09-15 12:00] VITALS: BP 126/59; TEMP 98.3
[2021-09-15 16:00] VITALS: BP 112/57; TEMP 98.4
[2021-09-15 20:00] VITALS: BP 119/61; TEMP 98.2
--- NOTE | 2021-09-15 22:03 | NUR ---
PT GIVEN DEXAMETHASONE 4 MG IVP AT THIS TIME THROUGH 20 G TO LAC W/O DIFFCULTY. PT. SITTING UP IN A HIGH FOWLERS POSITION WITH SIDE RAILS UP TIMES TWO WITH BED IN LOWEST POSITION WITH CALL LIGHT WITHIN REACH. PT. SP02 LEVEL ON ROOM AIR AT THIS TIME IS 97% WITH EVEN AND NON-LABORED BREATHING. PT. STILL A ONE PERSON ASSIST TO THE BSC AND IS STILL UNSTEADY AND HAS TO BE PHYSICALLY DIRECTED TO POSITION PT ON BSC. PT STILL HAS 18 F HORAN THAT WAS PLACED ON THE 17TH IN THE ED. 20 G TO LFA HAS NS INFUSING @ 150. PT IS CONFUSED AND THINKS HE IS DRIVING WITH HIS OR AT HOME SHELLING PECANS AND BEGAN TO WIPE OFF HIS BED BEFORE HE GOT BACK IN IT. NO S/S OF ACUTE DISTRESS DEMONSTRATED BY PT.
--- NOTE | 2021-09-16 02:55 | NUR ---
PT. RESTING QUIETLY AT THIS TIME. TELEMETRY AND IV SITES STILL INTACT AND WORKING APPROPRIATELY. PT STILL HOLDING GREAT SP02 LEVELS BETWEEN 96-96% ON ROOM AIR AT THIS TIME. BREATHING EVEN AND NON-LABORED. NO S/S OF ACUTE DISTRESS EXHIBITED BY PT.
[2021-09-16 05:27] LABS: PLATELET COUNT 173 K/uL (142-355)
[2021-09-16 05:43] LABS: POTASSIUM 3.8 mmol/L (3.6-5.2)
[2021-09-16 08:00] VITALS: BP 144/70; TEMP 97.7
--- NOTE | 2021-09-16 10:31 | NUR ---
PT ALERT AND ORIENTED. NAD NOTED. NS IVF INFUSING AT 150ML/HR ORDERED. IV SITES X2 LAC AND LFA INTACT WITH NO REDNESS OR SWELLING NOTED. 18 MONGOLIAN HORAN INTACT WITH HORAN CARE COMPLETED. AM MEDS ADMINISTERED ORDERED AND PT TOLERATED WELL WITH NO DIFFICULTY SWALLOWING. PT TALKS ABOUT HIS PREVIOUS JOB [employer] AND HIS FAMILY. HAS HX OF FALLS, USES WALKER AT HOME. CALLED AND WANTED UPDATE ON PT. PT DISCHARGED HOME TODAY PER HCP(SONIA). IV ABX INFUSING ORDERED. DENIES ANY PAIN/DISCOMFORT.
--- NOTE | 2021-09-16 10:42 | NUR ---
CALLED AND NOTIFIED REGARDING PATIENT BEING DISCHARGED AND SHE STATED SHE WOULD BE ABLE TO ASSOCIATE VICE PRESIDENT THIS AFTERNOON AFTER HER DOCTORS APPOINTMENT IN [place].
--- NOTE | 2021-09-16 13:00 | NUR ---
PT DISCHARGED TO GO HOME PER HCP(SONIA) AT 1132. DISCHARGE INSTRUCTIONS GIVEN TO PT ALONG WITH PRESCRIPTION FOR LEVAQUIN PO. CALLED AND DISCHARGE INSTRUCTIONS GIVEN TO VIA TELEPHONE, BOTH PT AND VERBALIZED UNDERSTANDING. HAS DOCTORS APPOINTMENT OUT OF TOWN AND WILL EMERGENCY COMMUNICATIONS DISPATCHER PT THIS AFTERNOON AFTER APPOINTMENT. BLADDER TRAINING STARTED ON PT AND COMPLETED PRIOR TO D/C OF HORAN CATH WHICH WAS PUT IN ON 09/13/21 IN ER. IV SITES X2 D/C'D ALONG WITH TELEMETRY. NO SWELLING OR REDNESS NOTED TO IV SITES. PT ALERT AND ORIENTED. ASSISTED PT TO BEDSIDE COMMODE. PT IN ROOM LAYING ON BED WATCHING TV AWAITING TO BE PICKED UP BY TO GO HOME. CONTINUE TO MONITOR.
--- NOTE | 2021-09-16 14:48 | NUR ---
PT TRANSPORTED OUT OF FACILITY AT 1430 VIA WHEELCHAIR. AND SONS ARRIVED TO TRANSORT PT HOME. PRESCRIPTION FOR LEVAQUIN GIVEN TO AND UPDATE ON PTS STATUS. HOME MEDS GIVEN TO .
== END 2021-09-16 14:30 | disposition home or self-care (01) | DRG 178 ==
LOC: ED 05:40 → MED/SURG 09:00
PROVIDERS: Emergency Medicine; ADMIT Internal Medicine Endocrinology, Diabetes & Metabolism; ATTEND Internal Medicine Endocrinology, Diabetes & Metabolism
DX: U07.1 COVID-19 (principal); N30.00 Acute cystitis without hematuria; B96.89 Other specified bacterial agents as the cause of diseases classified elsewhere; R07.89 Other chest pain; W18.39XA Other fall on same level, initial encounter; Y93.89 Activity, other specified; Y92.012 Bathroom of single-family (private) house as the place of occurrence of the external cause; I48.91 Unspecified atrial fibrillation; I10 Essential (primary) hypertension; N40.0 Benign prostatic hyperplasia without lower urinary tract symptoms; Z85.038 Personal history of other malignant neoplasm of large intestine; K21.9 Gastro-esophageal reflux disease without esophagitis
CPT/HCPCS: 36415; 80048; 80053; 81000; 82550; 83605; 83880; 84484; 85027; 85610; 85730; 87040; 87077; 87086; 87088; 87186; 87635; 93005; 94760; 96360; 96365; 99284; J0696; J1100; J1650; J1956; J2270; J3490; U0003

== ENCOUNTER 2021-12-24 09:56 | Outpatient (CLI) | payer OTHER ==
[~2021-12-24 09:56] MED LIST: ALLO300T23 PO; D350 MCG PO; FURO20TA67 PO; K-TAB20 MEQ PO; LEVO0.1224 PO; MULTI VITAMIN1 TAB PO; NIFE30TA PO; VITAMIN B-121000 MC2 PO
== END 2021-12-24 18:57 | disposition home or self-care (01) ==
LOC: RESP 09:56
PROVIDERS: ATTEND Internal Medicine Cardiovascular Disease
DX: I48.91 Unspecified atrial fibrillation (principal)

== ENCOUNTER 2022-03-04 12:10 | Outpatient (CLI) | payer OTHER ==
[2022-03-04 12:33] LABS: POTASSIUM 3.8 mmol/L (3.6-5.2)
== END 2022-03-04 18:53 | disposition home or self-care (01) ==
LOC: LABW 12:10
PROVIDERS: ATTEND Internal Medicine Cardiovascular Disease
DX: Z79.899 Other long term (current) drug therapy (principal); R06.09 Other forms of dyspnea
CPT/HCPCS: 36415; 80048; 83880

== ENCOUNTER 2022-04-23 15:11 | Outpatient (CLI) | payer OTHER ==
[2022-04-23 15:36] LABS: POTASSIUM 3.6 mmol/L (3.6-5.2)
== END 2022-04-23 19:25 | disposition home or self-care (01) ==
LOC: LABW 15:11
PROVIDERS: ATTEND Internal Medicine Cardiovascular Disease
DX: Z79.899 Other long term (current) drug therapy (principal); R60.0 Localized edema
CPT/HCPCS: 36415; 80048; 83880

== ENCOUNTER 2022-05-19 14:26 | Emergency (ER) | payer OTHER ==
[~2022-05-19] VITALS: Ht 188 cm; Wt 103.9 kg
[2022-05-19 14:30] VITALS: BP 140/56; TEMP 98
== END 2022-05-19 18:18 | disposition home or self-care (01) ==
LOC: ED 14:26
PROC: 0HQ1XZZ Repair Face Skin, External Approach (ICD-10-PCS; principal; 2022-05-19)
DX: S01.82XA Laceration with foreign body of other part of head, initial encounter (principal); S50.312A Abrasion of left elbow, initial encounter; S50.311A Abrasion of right elbow, initial encounter; W18.39XA Other fall on same level, initial encounter; Y92.89 Other specified places as the place of occurrence of the external cause
CPT/HCPCS: 99283

== ENCOUNTER 2022-05-30 11:14 | Outpatient (CLI) | payer OTHER | END 2022-05-30 21:50 | disposition home or self-care (01) | LOC: RAD 11:14 | PROVIDERS: ATTEND Nurse Practitioner Family | DX: M53.3 Sacrococcygeal disorders, not elsewhere classified (principal); W19.XXXA Unspecified fall, initial encounter ==

== ENCOUNTER 2023-01-07 21:15 | Emergency (ER) | payer OTHER ==
[~2023-01-07] VITALS: Ht 188 cm; Wt 108.9 kg
[2023-01-07 21:27] VITALS: TEMP 98
[2023-01-07 22:50] LABS: POTASSIUM 4.3 mmol/L (3.6-5.2)
[2023-01-07 22:55] LABS: PLATELET COUNT 154 K/uL (142-355)
[2023-01-08 02:00] VITALS: BP 145/77
== END 2023-01-08 02:00 | disposition short-term general hospital (02) ==
LOC: ED 21:15
PROVIDERS: Emergency Medicine Emergency Medical Services
DX: S22.038A Other fracture of third thoracic vertebra, initial encounter for closed fracture (principal); R10.84 Generalized abdominal pain; S50.812A Abrasion of left forearm, initial encounter; S60.222A Contusion of left hand, initial encounter; I48.91 Unspecified atrial fibrillation; W01.198A Fall on same level from slipping, tripping and stumbling with subsequent striking against other object, initial encounter; Y93.01 Activity, walking, marching and hiking; Y92.480 Sidewalk as the place of occurrence of the external cause
CPT/HCPCS: 80053; 81000; 82150; 83690; 83735; 84484; 85027; 85610; 93005; 96361; 96374; 96375; 99285; J2270; J2405; Q9963